=== PATIENT | female | born 1945 | race Caucasian/White ===

== ENCOUNTER 2018-03-15 23:43 | Emergency (ER) | payer MEDICARE, BC ==
[2018-03-16] MEDS ORDERED: Enalaprilat 1.25 MG/ML SDV IVPUSH ONE (00:03)
[2018-03-16] MEDS ORDERED: Sodium Chloride 0.9% 10 ML Syringe FLUSH PRN (00:03)
--- NOTE | 2018-03-16 01:31 | ER ---
DATE SEEN: 03/15/2018 CHIEF COMPLAINT: Hypertension. HISTORY OF PRESENT ILLNESS: This is a 73-year-old female who has had elevated blood pressure measurements over the last month. Tonight, she comes in with a blood pressure of more than 200. She complains of no chest pain and no headache or shortness of breath. She takes losartan and carvedilol. PAST MEDICAL HISTORY: Hypertension. MEDICATIONS: Medications were reviewed along with supplements. ALLERGIES: None. SOCIAL HISTORY: She does not smoke. PHYSICAL EXAMINATION: VITAL SIGNS: Initial blood pressure 212/96 and temperature 97.3. EARS, NOSE, AND THROAT: Negative. NECK: Supple. CHEST: Clear. CARDIOVASCULAR: S1 and S2 are normal. LABORATORY STUDIES: Troponin is negative. DIAGNOSTIC DATA: EKG: Normal sinus rhythm. IMPRESSION: Hypertensive urgency. PLAN: Vasotec 1.25 mg IV one time. CONDITION: Symptoms improved. DISPOSITION: The patient was discharged home. FOLLOWUP: In the office tomorrow. TIME SEEN: Midnight. /[id number] KELSY/NICK
== END 2018-03-16 01:23 | disposition home or self-care (01) ==
LOC: FB.ED 23:43
DX: I16.0 Hypertensive urgency (principal); Z79.899 Other long term (current) drug therapy
CPT/HCPCS: 36415; 80048; 84484; 93005; 96374; 99283; J7050